=== PATIENT | female | born 1995 | race Caucasian/White ===

== ENCOUNTER 2017-06-16 22:30 | Emergency (ER) | payer MEDICAID ==
[~2017-06-16] VITALS: Ht 167.6 cm; Wt 76.2 kg
[2017-06-16 22:47] VITALS: Ht 167.6 cm; Wt 76.2 kg
[2017-06-16 23:02] VITALS: BP 133/91
== END 2017-06-16 23:35 | disposition home or self-care (01) ==
LOC: ED 22:30
DX: K11.20 Sialoadenitis, unspecified (principal); H66.92 Otitis media, unspecified, left ear
CPT/HCPCS: J1885